=== PATIENT | female | born 1990 | race African-American/Black ===

== ENCOUNTER 2017-05-20 13:05 | Emergency (ER) | payer MEDICAID ==
[~2017-05-20] VITALS: Ht 172.7 cm; Wt 90.3 kg
[2017-05-20 13:21] VITALS: BP 140/86
== END 2017-05-20 14:28 | disposition left against medical advice (07) ==
LOC: ER 13:05
DX: R10.9 Unspecified abdominal pain (principal); Z53.21 Procedure and treatment not carried out due to patient leaving prior to being seen by health care provider

== ENCOUNTER 2020-05-22 01:29 | Emergency (ER) | payer OTHER, MEDICAID | END 2020-05-22 09:03 | disposition left against medical advice (07) | LOC: ER 01:41 | DX: J02.9 Acute pharyngitis, unspecified (principal); Z53.21 Procedure and treatment not carried out due to patient leaving prior to being seen by health care provider ==

== ENCOUNTER 2025-05-18 00:09 | Emergency (ER) | payer MEDICAID, OTHER ==
[~2025-05-18] VITALS: Ht 175.3 cm; Wt 99.8 kg
[2025-05-18 00:11] VITALS: BP 152/95; PULSE 113; RESP 20; TEMP 98.2; O2SAT 94
[2025-05-18] MEDS: KETOROLAC TROMETH 60MG/2ML VIAL IM ONE ×2 (01:02)
--- NOTE | 2025-05-18 01:04 | ED.PDOC ---
GI ASSESSMENT HPI Comments 34-year-old female presents to ER with complaints of left flank pain x1 day. Patient reports he started experiencing 10/10 left flank plain with radiation towards left lower abdomen at 7:30 p.m. prior to arrival to ER while resting at home. Denies use of medications for current symptoms and presents to ER ambulatory on arrival, with steady gait, in mild distress. Denies fever, body aches, chills, night sweats, nausea/vomiting, abdominal/pelvic pain, changes in urination/BM or any further symptoms/complaints Chief Complaint: Back Pain Time Seen by MD: 00:23 Primary Care Provider: DENIES Reviewed Notes: Nurses Notes, Medications, Allergies Allergies: Coded Allergies: NO KNOWN ALLERGIES (Unverified , 02/09/11) Home Meds Active Scripts Ibuprofen (Ibuprofen) 800 Mg Tab, 1 TAB PO TID PRN, #30 TAB 0 Refills Prov:TIERNEY PALENCIA 05/18/25 Mode of Arrival: Ambulatory Past Medical History PAST MEDICAL HISTORY: Anemia Surgical History: Denies all surgeries [employer]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 History Family History Family History: Unknown Social History Smoker: Non-Smoker Alcohol: Denies ETOH Use Drugs: Denies Drug Use Lives In: Home Constitutional: denies: chills, diaphoresis, fatigue, fever, malaise, sweats, weakness, others EENTM: denies: blurred vision, double vision, ear bleeding, ear discharge, ear drainage, ear pain, ear ringing, eye pain, eye redness, hearing loss, mouth pain, mouth swelling, nasal discharge, nose bleeding, nose congestion, nose pain, photophobia, tearing, throat pain, throat swelling, voice changes, others Respiratory: denies: cough, hemoptysis, orthopnea, SOB at rest, shortness of breath, SOB with excertion, stridor, wheezing, others Cardiovascular: denies: chest pain, dizzy spells, diaphoresis, Dyspnea on exertion, edema, irregular heart beat, left arm pain, lightheadedness, palpitations, PND, syncope, others Gastrointestinal: reports: others (As stated in HPI) Genitourinary: denies: abnormal vagina bleeding, burning, dyspareunia, dysuria, flank pain, frequency, hematuria, incontinence, pain, , vagina discharge, urgency, others Neurological: denies: dizziness, fainting, headache, left sided numbness, left sided weakness, numbness, paresthesia, pre-existing deficit, right sided numbness, right sided weakness, seizure, speech problems, tingling, tremors, weakness, others Musculoskeletal: denies: back pain, gout, joint pain, joint swelling, muscle pain, muscle stiffness, neck pain, others Integumetry: denies: bruises, change in color, change in hair/nails, dryness, laceration, lesions, lumps, rash, wounds, others Allergic/Immunocompromised: denies: Difficulty Healing, Frequent Infections, Hives, Itching, others Hematologic/Lymphatic: denies: anemia, blood clots, easy bleeding, easy bruising, swollen glands, others Endocrine: denies: excessive hunger, excessive sweating, excessive thirst, excessive urination, flushing, intolerance to cold, intolerance to heat, unexplained weight gain, unexplained weight loss, others Psychiatric: denies: anxiety, bipolar disorder, depression, hopeless, panic disorder, schizophrenia, sleepless, suicidal, others Physical Exam General Appearance: Mild Distress, Obese HEENT: PERRL/EOMI Neck: Full Range of Motion, Non-Tender, Normal Respiratory: Chest Non-Tender, Lungs Clear, No Accessory Muscle Use, No Respiratory Distress, Normal Breath Sounds Cardiovascular: No Murmur, No Gallop, Regular Rate/Rhythm Breast Exam: Deferred Gastrointestinal: No Organomegaly, Non Tender, No Pulsatile Mass, Normal Bowel Sounds, Soft Genitalia: Deferred Pelvic: Deferred Rectal: Deferred Extremities: Normal capillary refill, Normal range of motion Musculoskeletal : Extremity Location: Back (TTP to left flank and to lower lumbar spine noted. No CVA tenderness noted bilaterally.) Neurologic: Alert, tram inspector II-XII nml as Tested, No Motor Deficits, No Sensory Deficits Cerebellar Function: Normal Reflexes: Normal Skin: Dry, Normal Color, Warm Peripheral Pulses: 2+ Radial (R), 2+ Radial (L), 2+ Brachial (R), 2+ Brachial (L) Lymphatic: No Adenopathy Was a procedure done? Was a procedure done?: No Sedation Sedation?: No GI differential Dx Differential Diagnosis: GI hemorrhage, Ischemic Bowel, Trauma intraabdominal, UTI, Urolithiasis, Dehydration X-Ray, Labs, Meds, VS Vital Signs Date Time Temp Pulse Resp B/P (MAP) Pulse Ox O2 Delivery O2 Flow Rate FiO2 05/18/25 00:20 Room Air* 0 21 05/18/25 00:11 98.2 113 20 152/95 94 98.2 Lab Test 05/18/25 01:10 05/18/25 00:30 Range/Units White Blood Count 9.2 4.4-10.8 10^3/uL Red Blood Count 4.85 4.0-5.20 10^6/uL Hemoglobin 14.4 12.2-16.2 g/dL Hematocrit 40.9 36.0-46.0 % Mean Corpuscular Volume 84.3 80.0-100.0 fL Mean Corpuscular Hemoglobin 29.7 28.0-32.0 pg Mean Corpuscular Hemoglobin Concent 35.2 32.0-36.0 g/dL Red Cell Distribution Width 13.8 11.8-14.3 % Platelet Count 348 140-450 10^3/uL Mean Platelet Volume 7.4 6.9-10.8 fL Neutrophils (%) (Auto) 58.3 37.0-80.0 % Lymphocytes (%) (Auto) 34.5 10.0-50.0 % Monocytes (%) (Auto) 6.6 0.0-12.0 % Eosinophils (%) (Auto) 0.3 0.0-7.0 % Basophils (%) (Auto) 0.3 0.0-2.0 % Neutrophils # (Auto) 5.3 1.6-8.6 10 ^3/uL Lymphocytes # (Auto) 3.2 0.4-5.4 10 ^3/uL Monocytes # (Auto) 0.6 0-1.3 10 ^3/uL Eosinophils # (Auto) 0 0-0.8 10 ^3/uL Basophils # (Auto) 0 0-0.2 10 ^3/uL Nucleated Red Blood Cells 0.1 % Sodium Level 139 136-145 mmol/L Potassium Level 2.9 L 3.5-5.1 mmol/L Chloride Level 104 98-107 mmol/L Carbon Dioxide Level 22 20-31 mmol/L Anion Gap 13 5-15 Blood Urea Nitrogen 10 9-23 mg/dL Creatinine 1.04 H 0.550-1.02 mg/dL Glomerular Filtration Rate Calc 72 >90 mL/min BUN/Creatinine Ratio 9.6 L 10.0-20.0 Serum Glucose 112 H 74-106 mg/dL Calcium Level 10.0 8.7-10.4 mg/dL Urine Color Light-yellow Yellow Urine Clarity Clear Clear Urine pH 5.5 5.0-9.0 Urine Specific [place] 1.009 1.001-1.035 Urine Protein Negative Negative Urine Ketones Trace Negative Urine Blood 1+ H Negative /uL Urine Nitrite Negative Negative Urine Bilirubin Negative Negative Urine Urobilinogen Normal Negative mg/dL Urine Leukocyte Esterase Negative Negative /uL Urine RBC <1 0 - 4 /hpf Urine Microscopic WBC 1 0-5 /HPF Urine Squamous Epithelial Cells Few <5 /hpf Urine Bacteria None seen None Seen /hpf Urine Glucose Normal Normal mg/dL Current Medications Medications (Trade) Dose Ordered Sig/Jacek Route Start Time Stop Time Status Last Admin Ketorolac Tromethamine (Toradol Injection) 60 mg ONCE ONCE IM 05/18/25 01:00 05/18/25 01:01 DC 05/18/25 01:02 Potassium Chloride (Klor-Con Tablet) 20 meq ONCE ONCE PO 05/18/25 02:15 05/18/25 02:16 DC 05/18/25 02:11 PATIENT: ANASTACIA DE LA OCT: [id number]: [id number] : 1990 LOC: ER ROOM / BED: / AGE / SEX: 34 / F ADM STATUS: REG ER SERVICE ORDERING PHYSICIAN: TIERNEY PALENCIA PROCEDURE(s): LUMB2 - LUMBAR SPINE 3 VIEW REASON: lumbar back pain ORDER NUMBER(s): [id number], ACCESSION NUMBER(s): [id number] INDICATION: lumbar back pain COMPARISON: None TECHNIQUE: 2 views of the lumbar spine were obtained. FINDINGS: The lumbar vertebral alignment is normal. The intervertebral disc spaces are well-maintained. No significant facet arthropathy is noted. No acute fracture, vertebral compression deformity or aggressive osseous lesions. The paravertebral soft tissues are grossly unremarkable. IMPRESSION: 1. No acute fracture. ATED BY: RIDGE FRANK MD DICTATED DATE/TIME: 05/18/25126 SIGNED BY: RIDGE FRANK MD SIGNED DATE/TIME: 05/18/25126 CC: PATIENT: DAYAMI DE LA O ACCT: [id number] UNIT: [id number] : 1990 LOC: ER ROOM / BED: / AGE / SEX: 34 / F ADM STATUS: REG ER SERVICE ORDERING PHYSICIAN: TIERNEY PALENCIA PROCEDURE(s): ABPL - CT AB PEL WO CON-NO ORAL OR IV REASON: left flank pain ORDER NUMBER(s): [id number], ACCESSION NUMBER(s): [id number] Exam: CT CT AB PEL WO CON-NO ORAL OR IV History: left flank pain Comparison Study: None Technique: Multidetector spiral CT of the chest, abdomen and pelvis was performed from lower neck to pubic symphysis Axial, coronal and sagittal multiplanar reformats were performed by the technologist on a separate workstation. Radiation Dose : 1. Chest/Abdomen/Pelvis: CTDIvol 17.52 mGy, DLP 1097.87 mGy*cm. Findings: Lower neck: Normal thyroid. Lungs: No focal consolidation, pleural effusion or pneumothorax. Heart/Vascular Structures: Normal heart size. No pericardial effusion. Lymph Nodes: No adenopathy Pleura: No pleural effusion or significant pneumothorax. Liver: The liver is normal in size. No focal lesions. Normal hepatic vascular enhancement. Gallbladder and Biliary Tree: Unremarkable Spleen: Unremarkable Pancreas: The pancreas is normal in appearance without focal lesions or abnormal enhancement. Adrenal Glands: Unremarkable Kidneys: Kidneys demonstrate normal symmetric enhancement without focal lesions, calculi or hydronephrosis. Bladder: Unremarkable Bowel: The stomach is grossly normal in appearance. Small bowel and colon are normal in caliber and distribution. The appendix is normal. Ascites: Absent Lymphadenopathy: No mesenteric, retroperitoneal or periportal lymphadenopathy. Abdominal Wall and Mesentery: Unremarkable. Vasculature: The visualized abdominal aorta is normal in size and caliber. Abdominal and pelvic vessels demonstrate normal enhancement. Pelvic Organs: Unremarkable Musculoskeletal: No aggressive focal bony lesions, acute fractures or dislocation. IMPRESSION: 1. No acute findings involving the chest, abdomen or pelvis. ATED BY: RDIGE FRANK MD DICTATED DATE/TIME: 05/18/25154 SIGNED BY: RIDGE FRANK MD SIGNED DATE/TIME: 05/18/25 0155 CC: CBC reviewed-unremarkable BMP reviewed-potassium 2.9 Toradol 60 mg IM ordered Potassium 20 mEq p.o. ordered Urinalysis reviewed without any significant abnormalities Patient had improvement in symptoms and in no distress prior to discharge Advised to drink plenty of fluids Advised to follow up with PCP in 1-2 days Patient verbalized understanding and agreeable with current plan of care Advised to return to ER immediately if symptoms worsen Images Reviewed?: Images reviewed and evaluated by me Time of 1ST Reevaluation: 01:03 Reevaluation 1ST: N/A Time of 2ND Reevaluation: 02:40 Reevaluation 2ND: Improved Patient Education/Counseling: Diagnosis, Treatment, Prognosis, Need For Follow Up Family Education/Counseling: No Family Present SEPSIS Sepsis Screen Date sepsis recognized/suspect: May 18, 2025 Time Sepsis recognized/suspect: 0014 Recent Procedure: No On Antibiotic Therapy: No Respiratory Rate >20: No Heart Rate >90: Yes Temp<36 C (96.8 F) or >38.3 C: No SBP <90 or MAP <65 mmHG: No New Acute Mental Status Change: No Is the patient on CPAP, BIPAP,: No Physician Orders Lumbar Spine 3 View (05/18/25 00:23) Urine Bacterial Culture (05/18/25 00:57) Ct Ab Pel Wo Con-No Oral Or Iv (05/18/25 00:57) Vital Signs Date Time Temp Pulse Resp B/P (MAP) Pulse Ox O2 Delivery O2 Flow Rate FiO2 05/18/25 00:20 Room Air* 0 21 05/18/25 00:11 98.2 113 20 152/95 94 98.2 Laboratory Tests Test 05/18/25 01:10 White Blood Count 9.2 10^3/uL (4.4-10.8) Medications Medications Dose Ordered Sig/Jacek Route Start Time Stop Time Status Last Admin Dose Admin Ketorolac Tromethamine 60 mg ONCE ONCE IM 05/18/25 01:00 05/18/25 01:01 DC 05/18/25 01:02 Potassium Chloride 20 meq ONCE ONCE PO 05/18/25 02:15 05/18/25 02:16 DC 05/18/25 02:11 Departure 1 Departure Time of Disposition: 02:42 Impression: Primary Impression: Left flank pain Additional Impression: Lumbar back pain Disposition: HOME / SELF CARE / HOMELESS Condition: Stable e-Prescriptions Ibuprofen (Ibuprofen) 800 Mg Tab 1 TAB PO TID PRN, #30 TAB 0 Refills Prov: TIERNEY PALENCIA 05/18/25 Discharged With: Self Critical Care Note Critical Care Time?: No Stability Stability form required: No Heart Score Heart Score: Heart Score Response (Comments) Value History N/A 0 EKG N/A 0 Age N/A 0 Risk Factors N/A 0 Troponin N/A 0 Total 0 TIERNEY PALENCIA May 18, 2025 01:04
--- NOTE | 2025-05-18 01:29 | DVH ---
INDICATION: lumbar back pain COMPARISON: None TECHNIQUE: 2 views of the lumbar spine were obtained. FINDINGS: The lumbar vertebral alignment is normal. The intervertebral disc spaces are well-maintained. No significant facet arthropathy is noted. No acute fracture, vertebral compression deformity or aggressive osseous lesions. The paravertebral soft tissues are grossly unremarkable. IMPRESSION: 1. No acute fracture.
[2025-05-18 01:39] LABS: Chloride 104 mmol/L (98-107); Sodium 139 mmol/L (136-145)
[2025-05-18 01:40] LABS: Anion Gap 13 (5-15); Calcium 10.0 mg/dL (8.7-10.4); Carbon Dioxide 22 mmol/L (20-31); Hematocrit 40.9 % (36.0-46.0); Hemoglobin 14.4 g/dL (12.2-16.2); Mean Corpuscular Hemoglobin 29.7 pg (28.0-32.0); Mean Corpuscular Volume 84.3 fL (80.0-100.0); Nucleated Red Blood Cells % 0.1 %
[2025-05-18 01:45] LABS: BUN/Creatinine Ratio 9.6 (10.0-20.0); Blood Urea Nitrogen 10 mg/dL (9-23)
--- NOTE | 2025-05-18 01:57 | DVH ---
Exam: CT CT AB PEL WO CON-NO ORAL OR IV History: left flank pain Comparison Study: None Technique: Multidetector spiral CT of the chest, abdomen and pelvis was performed from lower neck to pubic symphysis Axial, coronal and sagittal multiplanar reformats were performed by the technologist on a separate workstation. Radiation Dose : 1. Chest/Abdomen/Pelvis: CTDIvol 17.52 mGy, DLP 1097.87 mGy*cm. Findings: Lower neck: Normal thyroid. Lungs: No focal consolidation, pleural effusion or pneumothorax. Heart/Vascular Structures: Normal heart size. No pericardial effusion. Lymph Nodes: No adenopathy Pleura: No pleural effusion or significant pneumothorax. Liver: The liver is normal in size. No focal lesions. Normal hepatic vascular enhancement. Gallbladder and Biliary Tree: Unremarkable Spleen: Unremarkable Pancreas: The pancreas is normal in appearance without focal lesions or abnormal enhancement. Adrenal Glands: Unremarkable Kidneys: Kidneys demonstrate normal symmetric enhancement without focal lesions, calculi or hydronephrosis. Bladder: Unremarkable Bowel: The stomach is grossly normal in appearance. Small bowel and colon are normal in caliber and distribution. The appendix is normal. Ascites: Absent Lymphadenopathy: No mesenteric, retroperitoneal or periportal lymphadenopathy. Abdominal Wall and Mesentery: Unremarkable. Vasculature: The visualized abdominal aorta is normal in size and caliber. Abdominal and pelvic vessels demonstrate normal enhancement. Pelvic Organs: Unremarkable Musculoskeletal: No aggressive focal bony lesions, acute fractures or dislocation. IMPRESSION: 1. No acute findings involving the chest, abdomen or pelvis.
[2025-05-18 01:59] LABS: Glucose 112 mg/dL (74-106); Potassium 2.9 mmol/L (3.5-5.1)
[2025-05-18] MEDS: POTASSIUM CHL 20 Meq TABLET PO ONE ×2 (02:11→02:14)
[2025-05-18 02:38] LABS: Urine Protein, UAD Negative (Negative)
[2025-05-18] MEDS ORDERED: IBUP-1456 PO (02:43)
== END 2025-05-18 02:52 | disposition home or self-care (01) ==
LOC: ER 00:09
DX: R10.30 Lower abdominal pain, unspecified (principal); M54.50 Low back pain, unspecified; Z79.899 Other long term (current) drug therapy
CPT/HCPCS: 36415; 72100; 74176; 80048; 81001; 85025; 87086; 96372; 99285; J1885